=== PATIENT | male | born 1965 | race Caucasian/White ===

== ENCOUNTER 2018-05-16 08:36 | Emergency (ER) | payer OTHER ==
[~2018-05-16] VITALS: Ht 182.9 cm; Wt 79.4 kg
[2018-05-16 10:18] VITALS: BP 142/81
== END 2018-05-16 10:19 | disposition home or self-care (01) ==
LOC: M.ERS 08:36
DX: S90.02XA Contusion of left ankle, initial encounter (principal); S50.812A Abrasion of left forearm, initial encounter; S60.511A Abrasion of right hand, initial encounter; Z88.0 Allergy status to penicillin; V29.09XA Motorcycle driver injured in collision with other motor vehicles in nontraffic accident, initial encounter; Y93.89 Activity, other specified; Y92.89 Other specified places as the place of occurrence of the external cause; Y99.8 Other external cause status

== ENCOUNTER 2021-05-09 17:14 | Emergency (ER) | payer OTHER ==
[~2021-05-09] VITALS: Ht 182.9 cm; Wt 81.7 kg
[2021-05-09] MEDS ORDERED: DEXAMETHASONE 44 M1 PO (17:47)
[2021-05-09] MEDS ORDERED: ZPAK PO (17:47)
[2021-05-09] MEDS ORDERED: PROMETH-CODEIN 65 ML PO (17:47)
[2021-05-09 18:25] VITALS: BP 129/69
== END 2021-05-09 18:26 | disposition home or self-care (01) ==
LOC: M.ERS 17:14
DX: U07.1 COVID-19 (principal)